=== PATIENT | female | born 1980 | race Caucasian/White ===

== ENCOUNTER → 2018-12-30 | Outpatient (CLI) | payer BC ==
--- NOTE | 2018-12-30 15:40 | KCIC ---
EXAM: Pelvic sonogram. HISTORY: Abnormal uterine bleeding. TECHNIQUE: Transabdominal and transvaginal sonographic imaging of the pelvis was performed. COMPARISON: None. FINDINGS: The uterus measures 7.0 x 2.9 x 3.6 cm. There is a suspected subseptate uterus. The endometrial stripe is within normal limits, measuring 4.1 mm on the right and 4.8 mm on the left. There is a 1.1 cm hypoechoic lesion within the cervix, likely a nabothian cyst. There is a 9 mm hyperechoic lesion within the cervix The ovaries are normal in size and demonstrate normal blood flow. There is a dominant right ovarian follicle measuring 1.7 cm. There is no pelvic free fluid. IMPRESSION: 1. Suspected subseptate uterus. The endometrial stripe is within normal limits in thickness. 2. 1.7 cm dominant right ovarian follicle. 3. Suspected small nabothian cysts within the cervix. 4. 9 mm solid-appearing hyperechoic lesion or region within the cervix. Correlate with pelvic examination findings to exclude neoplasm. Electronically signed by: Merly Massey MD (12/30/2018 3:36 PM) [place] [id number]
== END | disposition home or self-care (01) ==
LOC: KCIC US 14:28
PROVIDERS: ATTEND Nurse Practitioner Family
DX: N93.9 Abnormal uterine and vaginal bleeding, unspecified (principal)
CPT/HCPCS: 76830; 76856